=== PATIENT | female | born 1975 | race Caucasian/White ===

== ENCOUNTER 2018-11-09 16:37 | Emergency (ER) | payer BC ==
[~2018-11-09] VITALS: Ht 154.9 cm; Wt 59.0 kg
[2018-11-09 16:42] VITALS: Ht 154.9 cm; Wt 59.0 kg
[2018-11-09] MEDS ORDERED: IBUPROFEN 600 MG TAB PO ONE (18:30)
[2018-11-09] MEDS ORDERED: LIDOCAINE 1% (MDV) 20 ML INJ SC ONE (19:00)
[2018-11-09] MEDS ORDERED: IBUP-1542 PO (19:50)
[2018-11-09] MEDS ORDERED: SULF1TAB31 PO (19:50)
[2018-11-09] MEDS ORDERED: CEPH-443 PO (19:50)
--- NOTE | 2018-11-09 19:55 | ERD ---
ER Documentation Chief Complaint Chief Complaint RIGHT AC LUMP WITH REDNESS/PAIN/SWELLING HPI 43-year old female patient with no significant past medical history presents to the ED complaining of a lump on the right extremity started about 7 days ago. Reports that started to get more swollen. Denies any nausea, vomiting, diarrhea, neck stiffness. Patient is eating properly, tolerating oral intake and has normal bowel movements and good urine output. She denied any smoking. Reports that she does drink alcohol. States that she has previously used meth, snorted it but denies any IV drug use. ROS All systems reviewed and are negative except as per history of present illness. Medications Home Meds Active Scripts Sulfamethoxazole/Trimethoprim* (Bactrim Ds* Tablet) 1 Each Tablet, 1 TAB PO BID for 7 Days, #14 TAB Prov:AGGIE DENG PA-C 11/09/18 Cephalexin* (Keflex*) 500 Mg Capsule, 500 MG PO QID for 7 Days, CAP Prov:AGGIE DENG PA-C 11/09/18 Ibuprofen* (Motrin*) 600 Mg Tab, 600 MG PO Q6, #30 TAB Prov:AGGIE DENG PA-C 11/09/18 Allergies Allergies: Coded Allergies: No Known Allergy (Unverified , 11/09/18) PMhx/Soc Medical and Surgical Hx: pt denies Medical Hx, pt denies Surgical Hx Hx Alcohol Use: No Hx Substance Use: No Hx Tobacco Use: No Smoking Status: Never smoker FmHx Family History: No diabetes, No coronary disease Physical Exam Vitals Vital Signs Date Temp Pulse Resp B/P (MAP) Pulse Ox O2 O2 Flow FiO2 Time Delivery Rate 11/09/18 99.1 79 18 121/83 99 Room Air 19:56 (96) 11/09/18 98.6 83 16 131/75 100 16:42 (93) Physical Exam Const: [id number], well-nourished. In no acute distress. Head: Atraumatic, normocephalic Eyes: Normal Conjunctiva without injection ENT: Normal external ear, nose and mouth. Neck: Full range of motion. No meningismus. Resp: Clear to auscultation bilaterally. No wheezing, rhonchi, rales, or crack les. No accessory muscle use. No retractions. Cardio: Regular rate and rhythm, no murmurs Skin: No petechiae or rashes Back: No midline tenderness. No CVA tenderness. Ext: No cyanosis, or edema. Cap refill less than 2 seconds. Distal pulses intact bilaterally. 4 cm area of fluctuance of the right cubital fossa with slight erythema. Full range motion of the bilateral elbows with supination, pronation, flexion and extension. Neur: Awake and alert. Normal gait and coordination. Muscle strength 5/5. Sensation intact bilaterally. Psych: Normal Mood and Affect Results 24 hrs Laboratory Tests Test 11/09/18 19:46 POC Beta HCG, Qualitative NEGATIVE Current Medications Medications Dose Sig/Erich Start Time Status Last (Trade) Ordered Route PRN Stop Time Admin Dose Reason Admin Ibuprofen 600 mg ONCE ONCE 11/09/18 DC 11/09/18 (Motrin) PO 18:30 18:36 11/09/18 18:31 Lidocaine 20 ml ONCE ONCE 11/09/18 DC (Xylocaine SC 19:00 1% (Mdv) 20 11/09/18 ml) 19:01 Procedures/MDM 43-year-old female patient with a past medical history of schizoaffective disorder presents the ED complaining of a bump on her right arm. Patient is afebrile and nontoxic-appearing. Patient's blood pressure is 131/75. Blood Pressure Assessment: Patient's blood pressure was elevated (>120/80) but appears stable without evidence of hypertension emergency or urgency. The patient was counseled about the risks of hypertension and urged to pursue outpatient monitoring and therapy within a week with their primary care physician. Patient gave consent to perform incision and drainage. 11 blade scalpel used to make a small incision. Abscess Incision and Drainage with irrigation by me: Location: Right antecubital fossa Anesthesia: [5 cc local 1% Lidocaine] Technique: [Irrigated. Disrupted loculations w/ instrumentation] Packing: [None] Complications: [Neurovascularly intact post procedure] Copious purulent discharge drained from the abscess. Keflex and Bactrim was prescribed to patient. Instructed patient to return to the ED sooner for any worsening symptoms. Follow up with primary care physician or return to the ED in 2 days for a wound check. Patient's questions were answered. Patient understood and agreed with discharge plan. Disclaimer: Inadvertent spelling and grammatical errors are likely due to EHR/dictation software use and do not reflect on the overall quality of patient care. Also, please note that the electronic time recorded on this note does not necessarily reflect the actual time of the patient encounter. Departure Diagnosis: Primary Impression: Abscess Condition: Stable Patient Instructions: Abscess, Incision And Drainage Referrals: [facility], [facility] YOU HAVE RECEIVED A MEDICAL SCREENING EXAM AND THE RESULTS INDICATE THAT YOU DO NOT HAVE A CONDITION THAT REQUIRES URGENT TREATMENT IN THE EMERGENCY DEPARTMENT. FURTHER EVALUATION AND TREATMENT OF YOUR CONDITION CAN WAIT UNTIL YOU ARE SEEN IN YOUR DOCTORS OFFICE WITHIN THE NEXT 1-2 DAYS. IT IS YOUR RESPONSIBILITY TO MAKE AN APPOINTMENT FOR FOLOW-UP CARE. IF YOU HAVE A PRIMARY DOCTOR --you should call your primary doctor and schedule an appointment IF YOU DO NOT HAVE A PRIMARY DOCTOR YOU CAN CALL OUR PHYSICIAN REFERRAL HOTLINE AT IF YOU CAN NOT AFFORD TO SEE A PHYSICIAN YOU CAN CHOSE FROM THE FOLLOWING [facility] [address] [facility]. [facility] [address] [facility] [place] [address] [facility] [address] [facility] [address] [facility]. [facility] [address] [facility]. [facility] YOU HAVE RECEIVED A MEDICAL SCREENING EXAM AND THE RESULTS INDICATE THAT YOU DO NOT HAVE A CONDITION THAT REQUIRES URGENT TREATMENT IN THE EMERGENCY DEPARTMENT. FURTHER EVALUATION AND TREATMENT OF YOUR CONDITION CAN WAIT UNTIL YOU ARE SEEN IN YOUR DOCTORS OFFICE WITHIN THE NEXT 1-2 DAYS. IT IS YOUR RESPONSIBILITY TO MAKE AN APPOINTMENT FOR FOLOW-UP CARE. IF YOU HAVE A PRIMARY DOCTOR --you should call your primary doctor and schedule and appointment IF YOU DO NOT HAVE A PRIMARY DOCTOR YOU CAN CALL OUR PHYSICIAN REFERRAL HOTLINE AT . IF YOU CAN NOT AFFORD TO SEE A PHYSICIAN YOU CAN CHOSE FROM THE FOLLOWING [facility] INSTITUTIONS[facility] [address] [place] [address] [facility] [address] [place] [address] [facility] + [address] [place] [address] [facility] Additional Instructions: Call your primary care doctor TOMORROW for an appointment during the next 2-3 days.See the doctor sooner or return here if your condition worsens before your appointment time. Follow up in 2 days in your clinic for wound check. AGGIE DENG PA-C Nov 09, 2018 19:55
[2018-11-09 19:56] VITALS: BP 121/83; PULSE 79; RESP 18
== END 2018-11-09 19:58 | disposition home or self-care (01) ==
LOC: FTE 16:37
DX: L02.413 Cutaneous abscess of right upper limb (principal)
CPT/HCPCS: 10060; 81025; 99283; Z7610